=== PATIENT | male | born 1935 | race Two or more races ===

== ENCOUNTER 2020-08-11 07:00 | Day surgery (SDC) | payer OTHER ==
[~2020-08-11] VITALS: Ht 167.6 cm; Wt 82.6 kg
[2020-08-11] MEDS ORDERED: SYNTHROID88 MCG (08:08)
--- NOTE | 2020-08-11 08:08 | NUR ---
PTE REFIERE BLANQUITA LO VA ADMITIR POR PROBLEMAS CON LA VEJIGA Y LO VAN A OPERAR
== END 2020-08-12 08:00 | disposition home or self-care (01) ==
LOC: CIR.AMB 07:00 → ER 07:23 → SEC-K 08:32 → SURH 08:32 → ER 08:32 → CIR.AMB 09:00 → SURH 09:08 → SEC-K 09:08 → EDSTATUS 09:34 → CIR.AMB 08-12 08:00 → SURH 08-12 19:45
PROVIDERS: ATTEND Urology
DX: C67.8 Malignant neoplasm of overlapping sites of bladder (principal); R31.0 Gross hematuria